=== PATIENT | female | born 1970 | race African-American/Black ===

== ENCOUNTER 2021-01-04 03:09 | Emergency (ER) | payer BC ==
[~2021-01-04] VITALS: Ht 172.7 cm; Wt 68.0 kg
[2021-01-04 03:13] VITALS: BP 133/66
--- NOTE | 2021-01-04 03:13 | NUR ---
PT AMBULATED TO BED #9
[2021-01-04] MEDS ORDERED: IBUPROFEN 800 MG TAB PO ONE (04:10)
[2021-01-04] MEDS ORDERED: LIDOCAINE 2% 1000 MG/50 ML VIAL INJ ONE (04:10)
--- NOTE | 2021-01-04 04:27 | NUR ---
PATIENT SIGNS CONCENT FORM OF TETANUS VACCINE AND AGREE TO TAKE ALL THE ASEPTIC AND ANTISEPTIC MESSUREMENT WAS DONE WE INYECT THE VACCINE AT THE LEFT DELTOID //Tylor RN
[2021-01-04 05:38] VITALS: BP 130/70
--- NOTE | 2021-01-04 05:41 | NUR ---
PATIENT ALERT ORIENTED NO COMPLAINING OF PAIN VITALS SIGNS IN NORMAL LIMITS STABLE ALL DC INSTRUCTION GAVE AND EXPLAINED WE RECOMMENDED TO COMING BACK TO THE HOSPITAL IF ANY UNCONTROLING BLEEDING ALSO FOLLOW UP WITH PCP //Tylor RN
== END 2021-01-04 05:35 | disposition home or self-care (01) ==
LOC: MED 03:09
DX: S61.216A Laceration without foreign body of right little finger without damage to nail, initial encounter (principal); Z23 Encounter for immunization; Z88.2 Allergy status to sulfonamides; Z88.6 Allergy status to analgesic agent; W45.8XXA Other foreign body or object entering through skin, initial encounter; Y93.G1 Activity, food preparation and clean up; Y92.89 Other specified places as the place of occurrence of the external cause; Y99.8 Other external cause status
CPT/HCPCS: 12001; 73140; 90471; 90715; 99283; J2001